=== PATIENT | female | born 1950 | race African-American/Black ===

== ENCOUNTER 2018-10-14 21:31 | Inpatient (IN) | payer BC, OTHER ==
[~2018-10-14] VITALS: Ht 167.6 cm; Wt 150.1 kg
[2018-10-14] MEDS ORDERED: NITROGLYCERIN OINT 1GM/INCH UDPKT TD ONE (23:15)
[2018-10-14] MEDS ORDERED: FUROSEMIDE 40MG/4ML VIAL IV ONE (23:15)
[2018-10-14] MEDS ORDERED: ASPIRIN 81MG TABLET PO ONE (23:15)
[2018-10-15] VITALS (8 sets, daily range): BP systolic 99–138; BP diastolic 35–82
[2018-10-15 00:18] LABS: EOSINOPHILS % 0.5 % (0.0-5.0); HEMATOCRIT. 41.3 % (36.0-48.0); HEMOGLOBIN. 13.6 g/dL (12.0-16.0); LYMPHOCYTES % 29.1 % (20.0-50.0); MEAN CORPUSCULAR HEMOGLOBIN 29.3 pg (28.0-32.0); MEAN PLATELET VOLUME 8.3 fl (7.4-10.4); MONOCYTES % 6.9 % (2.0-8.0); NEUTROPHILS % 62.5 % (40.0-76.0); PLATELET 258 x1000/uL (130-400); RED BLOOD CELL COUNT 4.64 mill/uL (4.2-5.4); RED CELL DISTRIBUTION WIDTH 15.4 % (11.6-14.6)
[2018-10-15 00:23] LABS: CHLORIDE 103 mEq/L (98-107)
[2018-10-15 00:26] LABS: INR 1.1; PARTIAL THROMBOPLASTIN TIME 26.2 sec (23.4-31.0); PROTHROMBIN TIME 10.7 sec (9.1-11.1)
[2018-10-15] MEDS ORDERED: ENOXAPARIN 150MG/ML SYR SUBCUT ONE (00:45)
[2018-10-15] MEDS ORDERED: LORAZEPAM 2MG/ML CPJ IV ONE (01:30)
[2018-10-15] MEDS ORDERED: OLME40TA18 MT (09:25)
[2018-10-15] MEDS ORDERED: FURO-151 MT (09:25)
[2018-10-15] MEDS ORDERED: AMLO2.5T2 MT (09:25)
[2018-10-15] MEDS ORDERED: GUAIFENESIN 200MG/10ML SUGAR FREE UDC PO PRN (11:00)
[2018-10-15] MEDS ORDERED: DOCUSATE SODIUM 100MG CAPSULE PO PRN (11:00)
[2018-10-15] MEDS ORDERED: NA PHOS,M-B/NA PHOS,DI-BA ENEMA 118ML PR PRN (11:00)
[2018-10-15] MEDS ORDERED: ACETAMINOPHEN 650MG SUPP PR PRN (11:00)
[2018-10-15] MEDS ORDERED: CLONIDINE 0.1MG TABLET PO PRN (11:00)
[2018-10-15] MEDS ORDERED: DIPHENHYDRAMINE 50MG/ML VIAL IV PRN (11:00)
[2018-10-15] MEDS ORDERED: HYDROCODONE/ACETAMINOPHEN 5/325MG TABLET PO PRN (11:00)
[2018-10-15] MEDS ORDERED: ONDANSETRON HCL 4MG/2ML INJ IV PRN (11:00)
[2018-10-15] MEDS ORDERED: ACETAMINOPHEN 325MG TABLET PO PRN (11:00)
[2018-10-15] MEDS ORDERED: IPRATROPIUM/ALBUTEROL 0.5-3(2.5)MG/3ML NEB INH PRN (11:00)
[2018-10-15 11:17] LABS: CLARITY URINE CLOUDY (CLEAR); COLOR URINE YELLOW (YELLOW); KETONES URINE NEGATIVE (NEGATIVE); LEUKOCYTE ESTERASE URINE 2+ (NEGATIVE); NITRITE URINE POSITIVE (NEGATIVE); OCCULT BLOOD URINE TRACE (NEGATIVE); PROTEIN URINE NEGATIVE (NEGATIVE); SPECIFIC GRAVITY URINE 1.011 (1.005-1.030); UROBILINOGEN URINE 0.2 E.U./dL (0.2-1.0)
[2018-10-15 12:13] LABS: *AMPHETAMINES SCREEN URINE NEGATIVE (NEGATIVE); *BARBITURATES SCREEN URINE NEGATIVE (NEGATIVE)
[2018-10-15 12:14] LABS: *BENZODIAZEPINES SCREEN URINE NEGATIVE (NEGATIVE); *COCAINE SCREEN URINE NEGATIVE (NEGATIVE); METHADONE URINE SCREEN NEGATIVE (NEGATIVE); OPIATES URINE SCREEN NEGATIVE (NEGATIVE); PHENCYCLIDINE URINE SCREEN NEGATIVE (NEGATIVE)
[2018-10-15 12:15] LABS: CANNABINOID URINE SCREEN NEGATIVE (NEGATIVE)
[2018-10-15 14:25] LABS: HEMATOCRIT 38.6 % (36.0-48.0); HEMOGLOBIN 12.7 g/dL (12.0-16.0); PLATELET 263 x1000/uL (130-400); RED BLOOD CELL COUNT 4.39 mill/uL (4.2-5.4); RED CELL DISTRIBUTION WIDTH 15.3 % (11.6-14.6)
[2018-10-15] MEDS: ENOXAPARIN 150MG/ML SYR SUBCUT SCH (14:35)
[2018-10-15 14:54] LABS: CREATINE KINASE MB FRACTION 1.4 ng/mL (0.5-3.6)
[2018-10-15] MEDS ORDERED: LEVOFLOXACIN 500MG PREMIX 100 ML IV SCH (15:45)
[2018-10-15] MEDS: LORAZEPAM 0.5MG TABLET PO PRN (15:58)
[2018-10-15 16:34] LABS: BG BASE EXCESS 5.4 mmol/L (-2.0-2.0); BG CARBOXYHEMOGLOBIN 0.4 % (0.5-1.5); BG DEOXYHEMOGLOBIN 3.5 % (0.0-5.0); BG FRACTION INSPIRED OXYGEN 32; BG METHEMOGLOBIN 0.2 % (0.0-1.5); BG OXYGEN SATURATION 96.5 % (92.0-98.5); BG OXYHEMOGLOBIN 95.9 % (94.0-97.0); BG PH 7.452 (7.350-7.450); BG PO2 86.3 mmHg (75.0-100.0); BG SAMPLE SITE RIGHT RADIAL; BG VENT MODE NASAL CANNULA
[2018-10-15] MEDS: FUROSEMIDE 40MG/4ML VIAL IVP SCH (17:38)
[2018-10-15] MEDS: AMLODIPINE 5MG TABLET PO SCH (17:39)
[2018-10-15] MEDS: LEVOFLOXACIN 500MG PREMIX 100 ML IV SCH (18:58)
[2018-10-15 23:29] LABS: CREATINE KINASE 124 IU/L (26-192)
[2018-10-15 23:31] LABS: CREATINE KINASE MB FRACTION < 1.0 ng/mL (0.5-3.6)
[2018-10-16] VITALS (12 sets, daily range): BP systolic 91–128; BP diastolic 6–97
[2018-10-16] MEDS: ENOXAPARIN 150MG/ML SYR SUBCUT SCH (03:06)
[2018-10-16] MEDS: FUROSEMIDE 40MG/4ML VIAL IVP SCH (08:31)
[2018-10-16] MEDS: AMLODIPINE 5MG TABLET PO SCH (08:33)
[2018-10-16] MEDS ORDERED: ASPIRIN 81MG EC TABLET PO SCH (09:00)
[2018-10-16 13:23] LABS: BASOPHILS % 1.2 % (0.0-2.0); EOSINOPHILS % 1.4 % (0.0-5.0); HEMOGLOBIN. 12.7 g/dL (12.0-16.0); LYMPHOCYTES % 33.6 % (20.0-50.0); MEAN CORPUSCULAR VOLUME 88.9 fL (81.0-99.0); MEAN PLATELET VOLUME 8.4 fl (7.4-10.4); MONOCYTES % 6.7 % (2.0-8.0); NEUTROPHILS % 57.1 % (40.0-76.0); PLATELET 262 x1000/uL (130-400); RED BLOOD CELL COUNT 4.38 mill/uL (4.2-5.4); RED CELL DISTRIBUTION WIDTH 15.4 % (11.6-14.6)
[2018-10-16 13:36] LABS: CHLORIDE 104 mEq/L (98-107)
[2018-10-16 13:43] LABS: LDL CHOLESTEROL 131 mg/dL (5-100)
[2018-10-16 13:47] LABS: HDL CHOLESTEROL 30 mg/dL (40-59); T4 FREE 1.19 ng/dL (0.76-1.46)
[2018-10-16] MEDS: LORAZEPAM 0.5MG TABLET PO PRN (13:55)
[2018-10-16] MEDS: APIXABAN 5 MG TABLET PO SCH (17:01)
[2018-10-16] MEDS: LEVOFLOXACIN 500MG PREMIX 100 ML IV SCH (17:02)
[2018-10-16] MEDS: ATORVASTATIN CALCIUM 10MG TABLET PO SCH (20:21)
[2018-10-17] VITALS (12 sets, daily range): BP systolic 86–119; BP diastolic 54–82
[2018-10-17 06:36] LABS: BASOPHILS % 0.8 % (0.0-2.0); EOSINOPHILS % 2.9 % (0.0-5.0); HEMATOCRIT. 33.7 % (36.0-48.0); HEMOGLOBIN. 11.2 g/dL (12.0-16.0); LYMPHOCYTES % 35.7 % (20.0-50.0); MEAN CORPUSCULAR HEMOGLOBIN 29.6 pg (28.0-32.0); MEAN CORPUSCULAR VOLUME 88.7 fL (81.0-99.0); MEAN PLATELET VOLUME 8.5 fl (7.4-10.4); MONOCYTES % 6.5 % (2.0-8.0); NEUTROPHILS % 54.1 % (40.0-76.0); PLATELET 234 x1000/uL (130-400); RED CELL DISTRIBUTION WIDTH 15.5 % (11.6-14.6)
[2018-10-17 07:50] LABS: CHLORIDE 105 mEq/L (98-107)
[2018-10-17] MEDS: FUROSEMIDE 40MG/4ML VIAL IVP SCH (08:49)
[2018-10-17] MEDS: AMLODIPINE 5MG TABLET PO SCH (08:49)
[2018-10-17] MEDS ORDERED: SUCRALFATE 1 G/10 ML UDC PO NR (09:00)
[2018-10-17] MEDS ORDERED: AMLODIPINE 5MG TABLET PO SCH (09:00)
[2018-10-17] MEDS: PANTOPRAZOLE SODIUM 40 MG/VIAL IV SCH (09:26)
[2018-10-17] MEDS ORDERED: LORAZEPAM 0.5MG TABLET PO PRN (11:00)
[2018-10-17 12:13] LABS: HEMATOCRIT 35.7 % (36.0-48.0); HEMOGLOBIN 11.8 g/dL (12.0-16.0)
[2018-10-17] MEDS: SUCRALFATE 1 G/10 ML UDC PO SCH ×3 (12:40→21:02)
[2018-10-17] MEDS: LEVOFLOXACIN 500MG PREMIX 100 ML IV SCH (17:22)
[2018-10-17] MEDS: ATORVASTATIN CALCIUM 10MG TABLET PO SCH (21:02)
[2018-10-18] VITALS (12 sets, daily range): BP systolic 84–133; BP diastolic 47–83
[2018-10-18 06:07] LABS: CHLORIDE 106 mEq/L (98-107)
[2018-10-18 06:29] LABS: BASOPHILS % 0.6 % (0.0-2.0); EOSINOPHILS % 2.3 % (0.0-5.0); HEMATOCRIT. 35.3 % (36.0-48.0); HEMOGLOBIN. 11.3 g/dL (12.0-16.0); LYMPHOCYTES % 36.2 % (20.0-50.0); MEAN CORPUSCULAR HEMOGLOBIN 28.5 pg (28.0-32.0); MEAN CORPUSCULAR VOLUME 89.1 fL (81.0-99.0); MEAN PLATELET VOLUME 8.5 fl (7.4-10.4); MONOCYTES % 6.3 % (2.0-8.0); NEUTROPHILS % 54.6 % (40.0-76.0); PLATELET 246 x1000/uL (130-400); RED BLOOD CELL COUNT 3.97 mill/uL (4.2-5.4); RED CELL DISTRIBUTION WIDTH 15.4 % (11.6-14.6)
[2018-10-18] MEDS: PANTOPRAZOLE SODIUM 40 MG/VIAL IV SCH (08:23)
[2018-10-18] MEDS: SUCRALFATE 1 G/10 ML UDC PO SCH ×4 (08:23→21:42)
[2018-10-18] MEDS: AMLODIPINE 5MG TABLET PO SCH (08:26)
[2018-10-18] MEDS: MAGNESIUM/ALUMINUM HYDROXIDE/SIMETHICONE 30ML UDC PO PRN (10:54)
[2018-10-18] MEDS ORDERED: LORAZEPAM 0.5MG TABLET PO PRN (11:00)
[2018-10-18] MEDS: APIXABAN 5 MG TABLET PO SCH (17:27)
[2018-10-18] MEDS: LEVOFLOXACIN 500MG PREMIX 100 ML IV SCH (17:28)
[2018-10-18] MEDS: ATORVASTATIN CALCIUM 10MG TABLET PO SCH (21:42)
[2018-10-18] MEDS: FAMOTIDINE 20MG/2ML VIAL IV SCH (21:42)
[2018-10-19] VITALS (12 sets, daily range): BP systolic 100–129; BP diastolic 53–87
[2018-10-19 07:27] LABS: BASOPHILS % 0.8 % (0.0-2.0); EOSINOPHILS % 3.1 % (0.0-5.0); HEMATOCRIT. 34.6 % (36.0-48.0); HEMOGLOBIN. 11.6 g/dL (12.0-16.0); LYMPHOCYTES % 34.4 % (20.0-50.0); MEAN CORPUSCULAR HEMOGLOBIN 29.5 pg (28.0-32.0); MEAN CORPUSCULAR VOLUME 88.4 fL (81.0-99.0); MEAN PLATELET VOLUME 8.4 fl (7.4-10.4); MONOCYTES % 6.7 % (2.0-8.0); PLATELET 246 x1000/uL (130-400); RED BLOOD CELL COUNT 3.91 mill/uL (4.2-5.4); RED CELL DISTRIBUTION WIDTH 15.2 % (11.6-14.6)
[2018-10-19 07:33] LABS: CHLORIDE 105 mEq/L (98-107)
[2018-10-19] MEDS: SUCRALFATE 1 G/10 ML UDC PO SCH ×4 (08:49→20:02)
[2018-10-19] MEDS: FAMOTIDINE 20MG/2ML VIAL IV SCH ×2 (08:49→20:02)
[2018-10-19] MEDS: APIXABAN 5 MG TABLET PO SCH ×2 (08:49→17:21)
[2018-10-19] MEDS: AMLODIPINE 5MG TABLET PO SCH (09:00)
[2018-10-19] MEDS: MAGNESIUM/ALUMINUM HYDROXIDE/SIMETHICONE 30ML UDC PO PRN (14:07)
[2018-10-19] MEDS: LEVOFLOXACIN 500MG TABLET PO SCH (17:21)
[2018-10-19] MEDS: ATORVASTATIN CALCIUM 10MG TABLET PO SCH (20:02)
[2018-10-20] VITALS (15 sets, daily range): BP systolic 111–155; BP diastolic 58–110
[2018-10-20 06:30] LABS: HEMATOCRIT 35.9 % (36.0-48.0)
[2018-10-20] MEDS: FAMOTIDINE 20MG/2ML VIAL IV SCH ×2 (09:03→21:02)
[2018-10-20] MEDS: AMLODIPINE 5MG TABLET PO SCH (09:04)
[2018-10-20] MEDS: APIXABAN 5 MG TABLET PO SCH ×2 (09:05→17:25)
[2018-10-20] MEDS: SUCRALFATE 1 G/10 ML UDC PO SCH ×4 (09:10→21:03)
[2018-10-20 09:59] LABS: BG BASE EXCESS 5.5 mmol/L (-2.0-2.0); BG CARBOXYHEMOGLOBIN 0.1 % (0.5-1.5); BG DEOXYHEMOGLOBIN 6.5 % (0.0-5.0); BG METHEMOGLOBIN 0.2 % (0.0-1.5); BG OXYGEN SATURATION 93.5 % (92.0-98.5); BG OXYHEMOGLOBIN 93.2 % (94.0-97.0); BG PCO2 55.8 mmHg (35.0-45.0); BG PH 7.377 (7.350-7.450); BG PO2 65.5 mmHg (75.0-100.0); BG SAMPLE SITE RIGHT RADIAL; BG TOTAL HEMOGLOBIN 12.6 g/dL (12.0-18.0); BG VENT MODE ROOM AIR
[2018-10-20] MEDS: LEVOFLOXACIN 500MG TABLET PO SCH (17:26)
[2018-10-20] MEDS ORDERED: LORAZEPAM 0.5MG TABLET PO PRN (20:30)
[2018-10-20] MEDS: ATORVASTATIN CALCIUM 10MG TABLET PO SCH (21:02)
[2018-10-21] VITALS (7 sets, daily range): BP systolic 117–133; BP diastolic 66–86
[2018-10-21 07:06] LABS: HEMATOCRIT 35.8 % (36.0-48.0); HEMOGLOBIN 11.7 g/dL (12.0-16.0)
[2018-10-21] MEDS: SUCRALFATE 1 G/10 ML UDC PO SCH (07:49)
[2018-10-21] MEDS: FAMOTIDINE 20MG/2ML VIAL IV SCH (07:49)
[2018-10-21] MEDS: AMLODIPINE 5MG TABLET PO SCH (07:50)
[2018-10-21] MEDS: APIXABAN 5 MG TABLET PO SCH (07:50)
[2018-10-23] MEDS ORDERED: APIXABAN 5 MG TABLET PO SCH (08:00)
== END 2018-10-21 11:20 | disposition home health service (06) | DRG 280 ==
LOC: ER 21:31 → 5EST 10-15 01:18 → ENRESERV 10-15 07:10 → 5EST 10-15 10:45
PROVIDERS: ADMIT Specialist; ATTEND Specialist
DX: I21.4 Non-ST elevation (NSTEMI) myocardial infarction (principal); I26.99 Other pulmonary embolism without acute cor pulmonale; I50.43 Acute on chronic combined systolic (congestive) and diastolic (congestive) heart failure; I82.432 Acute embolism and thrombosis of left popliteal vein; N39.0 Urinary tract infection, site not specified; Z68.44 Body mass index [BMI] 60.0-69.9, adult; G90.8 Other disorders of autonomic nervous system; E78.5 Hyperlipidemia, unspecified; F40.240 Claustrophobia; I95.9 Hypotension, unspecified; R73.9 Hyperglycemia, unspecified; E66.01 Morbid (severe) obesity due to excess calories; B96.89 Other specified bacterial agents as the cause of diseases classified elsewhere; I11.0 Hypertensive heart disease with heart failure; I27.29 Other secondary pulmonary hypertension; I27.81 Cor pulmonale (chronic); I50.9 Heart failure, unspecified; R73.03 Prediabetes; Z79.01 Long term (current) use of anticoagulants; Z86.73 Personal history of transient ischemic attack (TIA), and cerebral infarction without residual deficits
CPT/HCPCS: 36415; 36600; 71045; 78580; 80048; 80061; 80305; 82270; 82375; 82550; 82553; 82805; 82962; 83036; 83880; 84439; 84443; 84484; 85014; 85018; 85027; 85379; 87077; 87186; 87804; 93005; 93306; 93880; 93970; 94618; 96374; 96375; 97163; 97164; 99291; C1893; C9113; J1650; J1940; J1956; J2060; J3490; J7050